=== PATIENT | male | born 1935 | race Caucasian/White ===

== ENCOUNTER 2017-11-25 16:09 | Observation (INO) | payer MEDICARE, OTHER ==
[~2017-11-25] VITALS: Ht 172.7 cm; Wt 86.2 kg
[2017-11-25] MEDS ORDERED: TYLENOL WITH C1 EACH PO (19:59)
[2017-11-25] MEDS ORDERED: ALLOPURINOL300 MG PO (19:59)
[2017-11-25] MEDS ORDERED: FUROSEMIDE40 MG PO (19:59)
[2017-11-25] MEDS ORDERED: METOPROLOL SUCC50 MG PO (19:59)
[2017-11-25] MEDS ORDERED: SIMVASTATIN40 MG PO (19:59)
[2017-11-25] MEDS ORDERED: FINASTERIDE5 MG PO (19:59)
[2017-11-25] MEDS ORDERED: CLOPIDOGREL75 MG PO (19:59)
[2017-11-25] MEDS ORDERED: PANTOPRAZOLE 40 MG 10ML VIAL IV STA (20:07)
[2017-11-25] MEDS ORDERED: SODIUM CHLORIDE 0.9% 1000ML 1,000 ML IV STA (20:07)
[2017-11-25 20:23] LABS: BASOPHILS # (AUTO) 0.1 (0.0-0.1); BASOPHILS % 0.3 % (0.0-1.0); EOSINOPHILS % 0.1 % (0.0-6.0); HEMATOCRIT 48.6 % (38.2-49.6); HEMOGLOBIN 16.7 g/dL (14.0-18.0); LYMPHOCYTES % 6.2 % (18.0-39.1); MEAN CORPUSCULAR HGB CONC 34.4 g/dL (31-35); MONOCYTES # (AUTO) 0.5 (0.2-0.8); MONOCYTES % 3.2 % (4.4-11.3); NEUTROPHILS # (AUTO) 13.9 (2.1-6.9); NEUTROPHILS % 89.9 % (38.7-80.0); PLATELET COUNT 178 x10e3/uL (140-360); RED BLOOD COUNT 4.91 x10e6/uL (4.3-5.7); RED CELL DISTRIBUTION WIDTH 13.5 % (11.7-14.4)
[2017-11-25 20:27] LABS: INR 0.92; PROTHROMBIN TIME 12.8 seconds (11.9-14.5)
[2017-11-25 20:28] LABS: PARTIAL THROMBOPLASTIN TIME 24.7 seconds (23.8-35.5)
--- NOTE | 2017-11-25 20:36 | Diagnostic Imaging Report ---
EXAM: XR CHEST 1 VIEW DATE: 11/25/2017 8:07 PM INDICATION: Aortic valve replacement COMPARISON: None FINDINGS: Lines and Tubes: None Heart and Mediastinum: Heart is enlarged. Sternotomy wires. Lungs and Pleura: Small left effusion. Basilar opacities. Bones and Soft Tissues: No acute findings. IMPRESSION: 1. Cardiomegaly with probable mild edema. 2. Left basilar atelectasis with infectious process not excluded. Signed by: Dr. John Weiss MD on 11/25/2017 8:32 PM
[2017-11-25 20:38] LABS: ALBUMIN 4.2 g/dL (3.5-5.0); ALBUMIN/GLOBULIN RATIO 1.1 (0.8-2.0); ANION GAP 15.3 mmol/L (8-16); CALCIUM 10.4 mg/dL (8.4-10.2); CREATININE, SERUM 2.13 mg/dL (0.72-1.25); MAGNESIUM 2.3 MG/DL (1.3-2.1); POTASSIUM 4.3 mmol/L (3.5-5.1)
[2017-11-25 20:44] LABS: CREATINE KINASE MB 1.6 ng/mL (0.00-5.00)
[2017-11-25 21:05] LABS: OCCULT BLOOD STOOL NEGATIVE (NEGATIVE)
[2017-11-25 21:12] LABS: WBC,FECAL (FECAL LACTOFERRIN) POSITIVE (NEGATIVE)
[2017-11-25 21:52] LABS: BILIRUBIN,URINE NEGATIVE (NEGATIVE); KETONES,URINE NEGATIVE (NEGATIVE); LEUKOCYTE ESTERASE ,URINE NEGATIVE (NEGATIVE); NITRITE,URINE NEGATIVE (NEGATIVE); PROTEIN,URINE DIPSTICK NEGATIVE (NEGATIVE); URINE UROBILINOGEN 0.2 mg/dL (0.2 - 1)
[2017-11-25 21:55] LABS: CLARITY,URINE CLEAR (CLEAR); COLOR,URINE YELLOW (YELLOW)
[2017-11-25 22:07] LABS: LYMPHOCYTES % (MANUAL) 4 % (19-48); MONOCYTES % (MANUAL) 1 % (3.4-9.0); NEUTROPHILS % (MANUAL) 92 % (40-74)
[2017-11-25 22:09] LABS: PLATELET ESTIMATE ADEQUATE; PLATELET MORPHOLOGY COMMENT NORMAL; RBC MORPHOLOGY COMMENT NORMAL
[2017-11-25] MEDS ORDERED: DIATRIZOATE MEGL/DIATRIZOA SOD 30 ML BTL PO ONE (23:00)
--- NOTE | 2017-11-26 00:51 | Diagnostic Imaging Report ---
EXAM: CT Abdomen and Pelvis WITHOUT contrast INDICATION: Diverticulitis, left lower quadrant pain, chronic medical renal disease. COMPARISON: None. TECHNIQUE: Abdomen and pelvis were scanned utilizing a multidetector helical scanner from the lung base to the pubic symphysis without administration of IV contrast. Absence of intravenous contrast decreases sensitivity for detection of focal lesions and vascular pathology. Coronal and sagittal reformations were obtained. Routine protocol was performed. IV CONTRAST: None. ORAL CONTRAST: Gastrografin RADIATION DOSE: Total DLP: 641.23 mGy*cm Estimated effective dose: (DLP x 0.015 x size factor) mSv COMPLICATIONS: None FINDINGS: LINES and TUBES: None. LOWER THORAX: There is bibasilar atelectasis. Patient has a aortic replacement (TAVR) HEPATOBILIARY: No focal hepatic lesions. No biliary ductal dilation. GALLBLADDER: No radio-opaque stones or sludge. No wall thickening. SPLEEN: No splenomegaly. PANCREAS: No focal masses or ductal dilatation. ADRENALS: No adrenal nodules KIDNEYS/URETERS: No hydronephrosis. There are scattered too small to characterize hypodensites, likely benign. There is a 5.3 cm simple renal cyst, exophytic on series 2, image 30. No stones. GI TRACT: Large amount of stool in the distal sigmoid colon and rectum associated with circumferential wall thickening of this segment. There are diverticula within the colon without evidence of diverticulitis. Appendix is normal. PELVIC ORGANS/BLADDER: Unremarkable. LYMPH NODES: No lymphadenopathy. VESSELS: There is moderate atherosclerotic disease in the aorta and major arterial branches. PERITONEUM / RETROPERITONEUM: No free air or fluid. BONES: There are degenerative changes in the lumbar spine. SOFT TISSUES: Unremarkable. IMPRESSION: 1. Findings in the distal sigmoid colon and rectum are compatible with stercoral colitis 2. No evidence of diverticulitis Signed by: Dr. Miguel Meade M.D. on 11/26/2017 12:48 AM
[2017-11-26] MEDS ORDERED: ONDANSETRON HCL INJ 2 MG/ML VIAL IV PRN (02:00)
[2017-11-26] MEDS: SODIUM CHLORIDE 0.9% 1000ML 1,000 ML IV SCH ×2 (02:36→22:15)
[2017-11-26] MEDS: PIPERACILLIN/TAZO 2.25 GM 50 ML IV SCH ×4 (02:36→21:05)
[2017-11-26 04:00] VITALS: BP 129/71
[2017-11-26 04:27] VITALS: BP 130/78
[2017-11-26] MEDS: METRONIDAZOLE 500MG/NS 100ML 100 ML IV SCH ×4 (05:17→22:15)
[2017-11-26 06:56] LABS: BASOPHILS % 0.3 % (0.0-1.0); EOSINOPHILS # (AUTO) 0.1 (0.0-0.4); EOSINOPHILS % 0.5 % (0.0-6.0); HEMATOCRIT 41.3 % (38.2-49.6); HEMOGLOBIN 14.2 g/dL (14.0-18.0); LYMPHOCYTES # (AUTO) 2.1 (1.0-3.2); LYMPHOCYTES % 13.5 % (18.0-39.1); MEAN CORPUSCULAR HEMOGLOBIN 33.6 pg (28-32); MEAN CORPUSCULAR HGB CONC 34.4 g/dL (31-35); MEAN CORPUSCULAR VOLUME 97.9 fL (81-99); MONOCYTES % 6.2 % (4.4-11.3); NEUTROPHILS # (AUTO) 12.1 (2.1-6.9); NEUTROPHILS % 79.1 % (38.7-80.0); PLATELET COUNT 144 x10e3/uL (140-360); RED BLOOD COUNT 4.22 x10e6/uL (4.3-5.7); RED CELL DISTRIBUTION WIDTH 13.3 % (11.7-14.4)
[2017-11-26 07:18] LABS: ALBUMIN 3.2 g/dL (3.5-5.0); ANION GAP 11.6 mmol/L (8-16); CREATININE, SERUM 1.69 mg/dL (0.72-1.25); POTASSIUM 3.6 mmol/L (3.5-5.1)
[2017-11-26 07:27] LABS: CREATINE KINASE MB 1.3 ng/mL (0.00-5.00)
[2017-11-26 08:01] LABS: ANISOCYTOSIS SLIGHT; LYMPHOCYTES % (MANUAL) 15 % (19-48); MONOCYTES % (MANUAL) 7 % (3.4-9.0); NEUTROPHILS % (MANUAL) 76 % (40-74)
[2017-11-26 08:02] LABS: PLATELET ESTIMATE SLIGHTLY DECREASED; PLATELET MORPHOLOGY COMMENT NORMAL; RBC MORPHOLOGY COMMENT NORMAL
[2017-11-26 08:40] VITALS: BP 115/64
[2017-11-26 12:38] VITALS: BP 111/64
--- NOTE | 2017-11-26 13:05 | Consultation ---
DATE OF CONSULTATION: GASTROENTEROLOGY CONSULTATION REFERRING PHYSICIAN: Dr. Travis. REASON FOR CONSULTATION: Colitis. HISTORY OF PRESENT ILLNESS: Mr. Castañeda is a very pleasant 82-year-old man with no past medical history. He was in usual state of health about a week when he had ear surgery. Thereafter, he became more constipated than normal. He usually does not drink any water throughout the day and he had not had a bowel movement in over a week. He gets regular colonoscopy with Dr. Mitchell roughly every 2 to 3 years, the last one being a few years ago. Now that he is over 81, routine screening colonoscopies were going to be deferred. He took laxatives and suppositories at home and had a difficult time with defecation. He then developed left lower quadrant abdominal pain, which prompted him to come to the ER. He has not had any fevers, chills, sweats, weight loss, or bleeding. Here, he has leukocytosis and on imaging, it looks like a fecal impaction with large amount of stool in the distal sigmoid and rectum with associated wall thickening concerning for a stercoral or ischemic colitis. PAST MEDICAL HISTORY 1. Hypertension. 2. Dyslipidemia. 3. BPH. 4. CHF. 5. Aortic stenosis, status post SIL about 8 month ago at [facility]. 6. Chronic kidney disease. 7. Dyslipidemia. MEDICATION AND ALLERGIES: Reviewed. Please see MAR and medication reconciliation form. SOCIAL HISTORY: No alcohol, tobacco or illicit substances. FAMILY HISTORY: Reviewed and noncontributory. REVIEW OF SYSTEMS: Positive for near syncope prior to admission on straining, recent right ear surgery. Not mentioned in HPI, otherwise unremarkable. PHYSICAL EXAMINATION GENERAL: Pleasant, alert, oriented, in no acute distress. HEENT: Pupils equal, round, and reactive to light. NECK: Supple. LUNGS: Clear. CARDIOVASCULAR: S1 and S2. ABDOMEN: Soft. He is tender in the left lower quadrant with no rebound, guarding or mass. EXTREMITIES: No clubbing, cyanosis or edema. PSYCH: Calm and cooperative. NEUROLOGIC: Nonfocal. HEME/ONC: No bruising or adenopathy The electronic health records reviewed for laboratory and radiologic studies as well as history. ASSESSMENT: Colitis: Maybe infectious or ischemic. Stercoral is a possibility, however, with the leukocytosis, I be more concerned about the others as far as etiology goes. He has chronic constipation, which has been acutely exacerbated recently, which has not been helpful. He needs to drink plenty of water throughout the day as he can based on his chronic kidney disease. I will continue him on a 10 to 14-day course of antibiotics to cover bowel chantel. We may be able to defer colonoscopy on an inpatient basis for now if he improves as expected. For now, we will continue with clear liquid diet until he is symptomatically improved as far as his tenderness goes. We will continue with bowel regimen without stimulant laxatives. Thank you very much for asking me to see Mr. Castañeda. Any questions or concerns, please do not hesitate to contact me. Job#: [id number] VAS
[2017-11-26 14:48] LABS: C DIFFICILE TOXIN A&B AMP PROB NEGATIVE (NEGATIVE)
[2017-11-26 16:17] LABS: CREATINE KINASE MB 1.1 ng/mL (0.00-5.00)
[2017-11-26 16:28] VITALS: BP 108/61
[2017-11-26] MEDS ORDERED: DOCUSATE SODIUM 100 MG CAP PO SCH (17:00)
[2017-11-26] MEDS ORDERED: POLYETHYLENE GLYCOL 3350 17 GM PACK PO SCH (17:00)
[2017-11-26 20:00] VITALS: BP 112/70
[2017-11-27] VITALS: BP 107/61
[2017-11-27 02:04] VITALS: BP 107/61
[2017-11-27] MEDS: PIPERACILLIN/TAZO 2.25 GM 50 ML IV SCH ×2 (02:55→08:52)
[2017-11-27] MEDS: METRONIDAZOLE 500MG/NS 100ML 100 ML IV SCH (02:55)
[2017-11-27 04:00] VITALS: BP 125/71
[2017-11-27 08:00] VITALS: BP 112/73
[2017-11-27] MEDS ORDERED: FLAGYL250 MG (10:18)
== END 2017-11-27 10:42 | disposition home or self-care (01) ==
LOC: ER 16:09 → ERHOLD 11-26 02:01 → MED/SURG3 11-26 02:34
PROVIDERS: ADMIT Internal Medicine; ATTEND Internal Medicine
DX: K52.9 Noninfective gastroenteritis and colitis, unspecified (principal); K57.92 Diverticulitis of intestine, part unspecified, without perforation or abscess without bleeding; K59.09 Other constipation; D72.829 Elevated white blood cell count, unspecified; R01.1 Cardiac murmur, unspecified; I13.0 Hypertensive heart and chronic kidney disease with heart failure and stage 1 through stage 4 chronic kidney disease, or unspecified chronic kidney disease; N18.3 Chronic kidney disease, stage 3 (moderate); I50.9 Heart failure, unspecified; R55 Syncope and collapse; E78.5 Hyperlipidemia, unspecified; N40.0 Benign prostatic hyperplasia without lower urinary tract symptoms; Z79.02 Long term (current) use of antithrombotics/antiplatelets; Z95.2 Presence of prosthetic heart valve
CPT/HCPCS: 36415 ×2; 71045; 74176; 80053 ×2; 81001; 82150; 82270; 82550 ×2; 82553 ×2; 83630; 83690; 83735; 83880; 84484 ×2; 85025 ×2; 85610; 85730; 86850; 86900; 87086; 87493; 93005; 99284; G0378 ×2; J2543 ×2; J7030 ×2

== ENCOUNTER → 2021-01-28 | Outpatient (CLI) | payer MEDICARE, OTHER ==
[~2021-01-28] MED LIST: ALLOPURINOL300 MG PO; CLOPIDOGREL75 MG PO; COVID-19 VACC, MRNA(MODERNA)/PF 100 MCG/0.5 ML VIAL IM ONE; FINASTERIDE5 MG PO; FLAGYL250 MG; FUROSEMIDE40 MG PO; METOPROLOL SUCC50 MG PO; SIMVASTATIN40 MG PO; TYLENOL WITH C1 EACH PO
== END | disposition home or self-care (01) ==
LOC: VACCPMC 16:35
DX: Z23 Encounter for immunization (principal); Z20.822 Contact with and (suspected) exposure to COVID-19
CPT/HCPCS: 0011A; 91301

== ENCOUNTER → 2021-02-25 | Outpatient (CLI) | payer MEDICARE, OTHER | LOC: VACCPMC 02-24 10:58 | DX: Z23 Encounter for immunization (principal); Z20.822 Contact with and (suspected) exposure to COVID-19 | CPT/HCPCS: 91301 ==

== ENCOUNTER → 2021-09-05 | Day surgery (SDC) | payer MEDICARE, OTHER ==
[2021-09-02 13:52] LABS: BASOPHILS # (AUTO) 0.1 (0.0-0.1); BASOPHILS % 0.6 % (0.0-1.0); EOSINOPHILS # (AUTO) 0.3 (0.0-0.4); EOSINOPHILS % 4.2 % (0.0-6.0); HEMATOCRIT 46.4 % (38.2-49.6); HEMOGLOBIN 15.2 g/dL (14.0-18.0); LYMPHOCYTES # (AUTO) 1.8 (1.0-3.2); LYMPHOCYTES % 23.5 % (18.0-39.1); MEAN CORPUSCULAR HEMOGLOBIN 33.6 pg (28-32); MEAN CORPUSCULAR HGB CONC 32.8 g/dL (31-35); MEAN CORPUSCULAR VOLUME 102.4 fL (81-99); MONOCYTES # (AUTO) 0.5 (0.2-0.8); MONOCYTES % 6.5 % (4.4-11.3); NEUTROPHILS % 64.8 % (38.7-80.0); PLATELET COUNT 159 x10e3/uL (140-360); RED BLOOD COUNT 4.53 x10e6/uL (4.3-5.7); RED CELL DISTRIBUTION WIDTH 13.8 % (11.7-14.4)
[2021-09-02 14:25] LABS: ALBUMIN 3.8 g/dL (3.5-5.0); ALBUMIN/GLOBULIN RATIO 1.1 (0.8-2.0); ANION GAP 13.3 mmol/L (8-16); CALCIUM 9.1 mg/dL (8.4-10.2); CREATININE, SERUM 2.04 mg/dL (0.72-1.25); POTASSIUM 4.3 mmol/L (3.5-5.1)
[~2021-09-05] MED LIST changes: +ASPIRIN81 MG PO; +BUPIVACAINE 0.25% 30ML SDV ONE; -COVID-19 VACC, MRNA(MODERNA)/PF 100 MCG/0.5 ML VIAL IM ONE; +DEXAMETHASONE SOD PHOS INJ 4 MG/ML SDV ONE; +GLYCOPYRROLATE INJ 0.2 MG/ML VIAL ONE; +KETOROLAC TROMETHAMINE 30 MG/ML VIAL ONE; +LIDOCAINE 1% W/EPINEPHRINE 20 ML VIAL ONE; +LIDOCAINE HCL 2% LOCAL INJ 5 ML SDV VIAL INJ ONE; +ONDANSETRON HCL INJ 2MG/ML 2ML 2 MG/ML VIAL ONE; +PHENYLEPHRINE HCL 1% 10 MG/ML VIAL ONE; +POVIDONE IODINE 0.05% 0.05 % ML PO ONE; +PROPOFOL IV EMULSION 10 MG/ML 20 ML VIAL ONE
[2021-09-05 13:00] VITALS: BP 128/71
== END | disposition home or self-care (01) ==
LOC: OR 07:36
PROVIDERS: ATTEND Surgery
DX: K40.90 Unilateral inguinal hernia, without obstruction or gangrene, not specified as recurrent (principal); D17.6 Benign lipomatous neoplasm of spermatic cord; G47.33 Obstructive sleep apnea (adult) (pediatric); I10 Essential (primary) hypertension; M10.9 Gout, unspecified; Z91.040 Latex allergy status; Z01.810 Encounter for preprocedural cardiovascular examination; Z01.812 Encounter for preprocedural laboratory examination; Z01.818 Encounter for other preprocedural examination; Z20.822 Contact with and (suspected) exposure to COVID-19; Z79.82 Long term (current) use of aspirin
CPT/HCPCS: 36415; 49505; 71046; 80053; 85025; 93005; C1781; J1100; J1885; J2001; J2370; J2405; J2704; U0002

== ENCOUNTER → 2022-03-26 | Outpatient (CLI) | payer MEDICARE ==
[~2022-03-26] MED LIST changes: -BUPIVACAINE 0.25% 30ML SDV ONE; -DEXAMETHASONE SOD PHOS INJ 4 MG/ML SDV ONE; -GLYCOPYRROLATE INJ 0.2 MG/ML VIAL ONE; -KETOROLAC TROMETHAMINE 30 MG/ML VIAL ONE; -LIDOCAINE 1% W/EPINEPHRINE 20 ML VIAL ONE; -LIDOCAINE HCL 2% LOCAL INJ 5 ML SDV VIAL INJ ONE; -ONDANSETRON HCL INJ 2MG/ML 2ML 2 MG/ML VIAL ONE; -PHENYLEPHRINE HCL 1% 10 MG/ML VIAL ONE; -POVIDONE IODINE 0.05% 0.05 % ML PO ONE; -PROPOFOL IV EMULSION 10 MG/ML 20 ML VIAL ONE
== END ==
LOC: CT 07:11
PROVIDERS: ATTEND Internal Medicine Cardiovascular Disease
DX: Z86.73 Personal history of transient ischemic attack (TIA), and cerebral infarction without residual deficits (principal)
CPT/HCPCS: 70450

== ENCOUNTER → 2022-03-26 | Outpatient (CLI) | payer MEDICARE | LOC: CT 07:13 | PROVIDERS: ATTEND Family Medicine | DX: R41.3 Other amnesia (principal) | CPT/HCPCS: 70486 ==

== ENCOUNTER → 2022-05-19 | Outpatient (CLI) | payer MEDICARE | LOC: CT 15:28 | PROVIDERS: ATTEND Psychiatry & Neurology Neurology | DX: M54.12 Radiculopathy, cervical region (principal); R20.8 Other disturbances of skin sensation; R29.898 Other symptoms and signs involving the musculoskeletal system | CPT/HCPCS: 72125 ==

== ENCOUNTER → 2022-07-03 | Outpatient (CLI) | payer MEDICARE ==
[~2022-07-03] MED LIST changes: +IOPAMIDOL 200 MG/ML 20 ML VIAL IT ONE; +LIDOCAINE HCL 1% LOCAL INJ 20 ML VIAL ONE
[2022-07-03 10:41] LABS: HEMOGLOBIN 16.2 g/dL (14.0-18.0)
[2022-07-03 10:57] LABS: CREATININE, SERUM 2.27 mg/dL (0.72-1.25)
[2022-07-03 11:11] LABS: INR 0.92; PROTHROMBIN TIME 13.2 seconds (11.9-14.5)
[2022-07-03 11:12] LABS: PARTIAL THROMBOPLASTIN TIME 28.1 seconds (23.8-35.5)
== END ==
LOC: DX 10:10
PROVIDERS: ATTEND Neurological Surgery
DX: M50.20 Other cervical disc displacement, unspecified cervical region (principal)
CPT/HCPCS: 36415; 62302; 72126; 77003; 82565; 84520; 85014; 85049; 85610; 85730; J2001; Q9967